=== PATIENT | male | born 1985 | race Caucasian/White ===

== ENCOUNTER 2020-02-22 11:45 | Inpatient (IN) | payer MEDICAID, SELFPAY ==
[~2020-02-22] VITALS: Ht 182.9 cm; Wt 65.3 kg
--- NOTE | 2020-02-22 11:45 | NUR ---
PT PLACED IN BED 5 BY EMS.
[2020-02-22 11:48] VITALS: BP 138/89
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
[2020-02-22] MEDS ORDERED: IBUPROFEN 400 MG TAB PO ONE (12:35)
[2020-02-22] MEDS ORDERED: ACETAMINOPHEN 325 MG TAB PO ONE (12:35)
--- NOTE | 2020-02-22 13:10 | NUR ---
REFINERY OPERATOR REFORMING UNIT AT BEDSIDE
--- NOTE | 2020-02-22 13:15 | NUR ---
PT RESTING IN BED, COOPERATIVE, CALM. SITTER AT BEDSIDE
--- NOTE | 2020-02-22 13:24 | NUR ---
FOOD TRAY PROVIDED TO PATIENT.
[2020-02-22 13:29] LABS: BASOPHILS # (AUTO) 0.1 K/uL (0.00-0.22); BASOPHILS % (AUTO) 0.8 % (0.0-2.0); EOSINOPHILS # (AUTO) 0.3 K/uL (0-0.4); EOSINOPHILS % (AUTO) 2.2 % (0.0-4.0); HEMATOCRIT 40.6 % (36-52); HEMOGLOBIN 13.4 g/dL (12.0-18.0); LYMPHOCYTES # (AUTO) 2.5 K/uL (2.0-11.5); LYMPHOCYTES % (AUTO) 20.3 % (20.5-51.1); MEAN CORPUSCULAR HEMOGLOBIN 30 pg (27-31); MEAN CORPUSCULAR HGB CONC 33 g/dL (33-37); MEAN CORPUSCULAR VOLUME 90.3 fL (80-94); MONOCYTES # (AUTO) 1.2 K/uL (0.8-1.0); MONOCYTES % (AUTO) 9.7 % (1.7-9.3); NEUTROPHILS # (AUTO) 8.2 K/uL (1.8-7.7); PLATELET COUNT (AUTO) 314 K/uL (140-450); RED CELL DISTRIBUTION WIDTH 13.2 % (11.6-13.7); WHITE BLOOD COUNT (AUTO) 12.2 K/uL (4.8-10.8)
[2020-02-22 13:44] LABS: ANION GAP 11.9 (8-16); CREATININE 0.9 mg/dL (0.6-1.3); POTASSIUM 3.9 mmol/L (3.5-5.1)
--- NOTE | 2020-02-22 14:14 | NUR ---
PER DR. MILLAN, TELE PSYCH CONSULT WAS INITIATED, CONNECT ID #[id number]
--- NOTE | 2020-02-22 14:43 | NUR ---
PT RESTING IN BED, COOPERATIVE, CALM. SITTER AT BEDSIDE
[2020-02-22 16:45] LABS: BARBITURATE, URINE NEGATIVE ng/ml (NEG <=200); BENZODIAZEPINE, URINE NEGATIVE ng/mL (NEG <=200); CANNABINOID, URINE POSITIVE ng/mL (NEG <=50); COCAINE, URINE NEGATIVE ng/mL (NEG <=300); OPIATE, URINE NEGATIVE ng/mL (NEG <=2000); PHENCYCLIDINE SCREEN,URINE NEGATIVE ng/mL (NEG <=25)
--- NOTE | 2020-02-22 18:09 | NUR ---
PT RESTING IN BED, COOPERATIVE, CALM. SITTER AT BEDSIDE
--- NOTE | 2020-02-22 18:25 | NUR ---
[place] [facility] BEDSIDE EVALUATING PATIENT
--- NOTE | 2020-02-22 19:38 | NUR ---
REPORT GIVEN TO JEAN VERGARA FOR CONTINUITY OF CARE
--- NOTE | 2020-02-22 19:40 | NUR ---
RECEIVED REPORT FROM DELLA VERGARA
--- NOTE | 2020-02-22 19:53 | NUR ---
PT SLEEPING AT THIS TIME, NO SIGNS OF DISTRESS NOTED. WILL CONTINUE TO MONITOR
--- NOTE | 2020-02-22 21:31 | NUR ---
PT RESTING QUIETLY. STATES HE IS STILL HEARING VOICES BUT HE IS NO LONGER FEELING SUICIDAL. VOICES ARE NOT SAYING ANYTHING IN PARTICULAR, BUT THEY JUST CONSTANTLY BOTHER HIM. PT HAS HX OF BIPOLAR, SCHIZOPHRENIA, AND PTSD, HE HAS BEEN WITHOUT MEDS FOR OVER 2 WEEKS.
--- NOTE | 2020-02-22 22:20 | NUR ---
PT'S MOM CALLED LOOKING FOR PT, PT WAS ABLE TO SPEAK WITH HS MOTHER.
--- NOTE | 2020-02-22 22:45 | NUR ---
S/W TODD, MOTHER, AT [phone]. PER PT MOTHER SHE WOULD LIKE PERIODIC UPDATES. PRIMARY NURSE INFORMED.
--- NOTE | 2020-02-22 23:18 | NUR ---
PER [facility], PACKETS WERE FAXED AND THE FOLLOWING FACILITIES WERE CALLED: [facility] -- NO BEDS [facility] -- NO BEDS [facility] -- NO BEDS [facility] -- NO BEDS [facility] -- NO BEDS [facility] -- NO BEDS [facility] -- PACKET WILL BE ON HOLD PENDING DISCHARGES
[2020-02-23] MEDS ORDERED: HYDROcodone/APAP 7.5/325 MG 1 TAB PO PRN (00:10)
[2020-02-23] MEDS ORDERED: ONDANSETRON 4 MG/2 ML VIAL IVP PRN (00:10)
[2020-02-23 01:51] LABS: PROTHROMBIN TIME 9.9 secs (10.8-13.4)
[2020-02-23 01:52] LABS: PHOSPHORUS 5.2 mg/dL (2.5-4.9); THYROID STIMULATING HORMONE 4.34 uIU/mL (0.34-3.74)
--- NOTE | 2020-02-23 02:00 | NUR ---
PT SLEEPING, NO DISTRESS NOTED, RESPIRATIONS REGULAR
[2020-02-23 02:15] LABS: APPEARANCE,URINE CLEAR (CLEAR); BILIRUBIN,URINE NEGATIVE (NEGATIVE); BLOOD, URINE NEGATIVE (NEGATIVE); COLOR,URINE YELLOW (YELLOW); LEUKOCYTE ESTERASE ,URINE NEGATIVE (NEGATIVE); NITRITE, URINE NEGATIVE (NEGATIVE); UGLUCOSE NEGATIVE (NEGATIVE)
--- NOTE | 2020-02-23 04:35 | NUR ---
PT SLEEPING, NO DISTRESS NOTED, RESPIRATIONS REGULAR
--- NOTE | 2020-02-23 07:13 | NUR ---
PATIENT HAS BEEN SCREENED AND CATEGORIZED LOW NUTRITION RISK. PATIENT WILL BE SEEN WITHIN 7 DAYS OF ADMISSION. 02/29/20 DONALDO EUBANKS MS, RDN
--- NOTE | 2020-02-23 07:25 | NUR ---
Pt report given to TAMMIE VERGARA. Transfer of care at this time.
--- NOTE | 2020-02-23 07:26 | NUR ---
RECEIVED REPORT FROM URSULA PENA AND [facility].
--- NOTE | 2020-02-23 07:27 | NUR ---
PT SLEEPING IN BED. EASILY AROUSEABLE TO VOICE. NO DISTRESS NOTED. BED RAILS UP AND BED IN LOWEST POSITION. WILL CONTINUE TO MONITOR.
--- NOTE | 2020-02-23 07:50 | NUR ---
breakfast tray received. pt in bed eating at this time.
--- NOTE | 2020-02-23 08:28 | NUR ---
Dr. Guaman is evaluating the patient at bedside.
[2020-02-23] MEDS ORDERED: CRUSHER, PILL MC ONE (09:42)
[2020-02-23] MEDS: DOCUSATE SODIUM 100 MG GELCAP PO SCH ×2 (09:46→21:39)
[2020-02-23] MEDS: BENZTROPINE 1 MG TAB PO SCH ×2 (09:47→21:38)
[2020-02-23] MEDS: risperiDONE 1 MG TAB PO SCH ×2 (09:49→21:40)
--- NOTE | 2020-02-23 10:08 | NUR ---
pt laying in bed sleeping. AM meds given. easily arouseable to name. side rails up and bed in lowest position. will continue to monitor.
--- NOTE | 2020-02-23 11:36 | NUR ---
PT SLEEPING IN BED. PT IS EASILY AROUSEABLE TO VOICE. PT DENIES HEARING ANY VOICES AT THIS TIME. BEDRAILS UP AND BED IN LOWEST POSITION. WILL CONTINUE TO MONITOR
[2020-02-23] MEDS: ACETAMINOPHEN 325 MG TAB PO PRN (12:11)
--- NOTE | 2020-02-23 12:45 | NUR ---
PT TALKD TO MOM ON PHONE, AND ATE LUNCH
--- NOTE | 2020-02-23 12:55 | NUR ---
TALKED TO PTS MOM SALMA ON THE PHONE AND GAVE UPDATES.
--- NOTE | 2020-02-23 14:26 | NUR ---
pt had a call from his brother
[2020-02-23 17:10] VITALS: BP 126/74
--- NOTE | 2020-02-23 17:10 | NUR ---
PATIENT ARRIVED FROM ED VIA W/C. REPORT GIVEN BY TAMMIE LAMBERT NURSE. PATIENT IS ALERT AND ORIENTED X4. INTRODUCED SELF. INTRODUCED SELF TO ROOM. PATIENT ON 5150. PLANS OF CARE DISCUSSED. PATIENT WILL HAVE 1 TO 1 SITTER FOR SUICIDE PRECAUTION. PATIENT WITH IV INTACT AND PATENT TO RFA SALINE LOCK. SKIN INTACT. VS TO FOLLOW.
--- NOTE | 2020-02-23 17:12 | NUR ---
Patient will be admitted to care of DR MANZANARES. Admited to M/S. Will go to room 109B. Belongings list completed. Report to LIBRADO.
--- NOTE | 2020-02-23 18:52 | NUR ---
PATIENT IN STABLE CONDITION. 1 TO 1 SITTER AT BEDSIDE. WILL ENDORSE TO NIGHT NURSE FOR CONTINUITY OF CARE.
--- NOTE | 2020-02-23 19:05 | NUR ---
RECD. SLEEPING IN BED, BUT EASILY AROUSABLE. A/OX4, AMBULATORY TO THE BR. RESPIRATION EVEN AND UNLABORED. IV SALINE LOCK AT THE RIGHT AC G20, PATENT AND INTACT. STATED HE IS STILL HEARING VOICES. DENIES PAIN 0/10. PLAN OF CARE DISCUSSED. SEEMS NOT INTERESTED. WENT BACK TO SLEEP. 1:1 SITTER MONITORING NEAR DOOR TO ENSURE SAFETY.
[2020-02-23] MEDS ORDERED: NICOTINE TRANSD SYS 7 MG/24 HR PATCH TD ONE (19:30)
[2020-02-23] MEDS ORDERED: NICOTINE TRANSD SYS 7 MG/24 HR PATCH TD SCH (21:00)
--- NOTE | 2020-02-23 21:40 | NUR ---
DUE PO MEDICATIONS GIVEN, COOPERATIVE.
--- NOTE | 2020-02-24 | NUR ---
SLEEPING COMFORTABLY IN BED.
[2020-02-24 01:10] VITALS: BP 103/64
--- NOTE | 2020-02-24 03:00 | NUR ---
AMBULATED TO BR TO VOID, BACK TO BED AFTER VOIDING, WENT BACK TO SLEEP.
[2020-02-24 06:40] LABS: BASOPHILS % (AUTO) 0.6 % (0.0-2.0); EOSINOPHILS # (AUTO) 0.5 K/uL (0-0.4); EOSINOPHILS % (AUTO) 7.3 % (0.0-4.0); HEMATOCRIT 40.7 % (36-52); HEMOGLOBIN 13.6 g/dL (12.0-18.0); LYMPHOCYTES # (AUTO) 2.3 K/uL (2.0-11.5); LYMPHOCYTES % (AUTO) 34.8 % (20.5-51.1); MEAN CORPUSCULAR HEMOGLOBIN 30 pg (27-31); MEAN CORPUSCULAR HGB CONC 33 g/dL (33-37); MEAN CORPUSCULAR VOLUME 90.2 fL (80-94); MONOCYTES # (AUTO) 0.7 K/uL (0.8-1.0); MONOCYTES % (AUTO) 10.9 % (1.7-9.3); NEUTROPHILS % (AUTO) 46.4 % (42.2-75.2); PLATELET COUNT (AUTO) 276 K/uL (140-450); RED BLOOD CELL COUNT(AUTO) 4.51 MIL/uL (4.20-6.10); RED CELL DISTRIBUTION WIDTH 13.3 % (11.6-13.7); WHITE BLOOD COUNT (AUTO) 6.5 K/uL (4.8-10.8)
[2020-02-24 06:52] LABS: ANION GAP 11.4 (8-16); CARBON DIOXIDE 30.7 mmol/L (21-32); CREATININE 0.7 mg/dL (0.6-1.3); POTASSIUM 4.1 mmol/L (3.5-5.1)
--- NOTE | 2020-02-24 07:00 | NUR ---
CONDITION REMAIN STABLE. SAFETY MAINTAINED DURING SHIFT. NEW 1:1 SITTER MONITORING PATIENT NEAR DOOR. WILL ENDORSE TO AM SHIFT NURSE FOR CONTINUITY OF CARE.
[2020-02-24 07:19] LABS: CHOL/HDL RATIO 6.2 (1-4.5)
[2020-02-24 07:19] LABS: MAGNESIUM 1.7 mg/dL (1.8-2.4); PHOSPHORUS 3.8 mg/dL (2.5-4.9)
--- NOTE | 2020-02-24 08:00 | NUR ---
RECEIVED REPORT FROM PM RN. PT IS RESTING IN BED, EYES CLOSED. NO SIGNS OF DISTRESS. RESPIRATIONS EVEN AND UNLABORED. SITTER IS PRESENT. 22G IN RT HAND. WILL CONTINUE TO MONITOR. CONTINUING PLAN OF CARE.
--- NOTE | 2020-02-24 08:00 | NUR ---
MEDICATIONS GIVEN. PT COOPERATIVE. WILL CONTINUE TO MONITOR.
[2020-02-24] MEDS: risperiDONE 1 MG TAB PO SCH ×2 (08:23→20:03)
[2020-02-24] MEDS: DOCUSATE SODIUM 100 MG GELCAP PO SCH ×2 (08:23→20:03)
[2020-02-24] MEDS: BENZTROPINE 1 MG TAB PO SCH ×2 (08:27→20:04)
[2020-02-24 08:30] VITALS: BP 106/66
[2020-02-24] MEDS ORDERED: MAGNESIUM OXIDE 400 MG TAB PO SCH (09:00)
--- NOTE | 2020-02-24 09:50 | NUR ---
SPOKE TO PATIENT ABOUT NEXT OF KIN. PT'S STATES HIS MOTHER, TODD MADISON . PT AMBULATED TO RESTROOM TO VOID. PT RETURNED BACK TO BED. WILL CONTINUE TO MONITOR.
[2020-02-24] MEDS: ACETAMINOPHEN 325 MG TAB PO PRN (10:17)
[2020-02-24] MEDS ORDERED: NICOTINE TRANSD SYS 21 MG/24 HR PATCH TD SCH (14:15)
--- NOTE | 2020-02-24 14:22 | NUR ---
NICOTINE PATCH GIVEN ON RT UPPER SHOULDER. PT TOLERATED PROCEDURE WELL. PT IS RESTING IN BED, EYES OPEN. NO SIGNS OF DISTRESS. RESPIRATIONS EVEN AND UNLABORED. WILL CONTINUE TO MONITOR.
[2020-02-24 17:10] VITALS: BP 122/75
--- NOTE | 2020-02-24 17:43 | NUR ---
DISCHARGE PLANNING: DISCUSSED DC PLAN WITH DR. WAGNER, HE STATED PATIENT IS MEDICALLY STABLE FOR TRANSFER TO IN PATIENT PSYCHE FACILITY. CONTACTED [facility], ABLE TO SPEAK TO [place]. SHE STATED THEY ARE AWARE OF THIS PATIENT AND IS WORKING TO FIND PLACEMENT. Addendum: 02/24/20 at 1752 by Nneka Naqvi CM CHARGE NURSE AND DR. WAGNER MADE AWARE THAT WE NEED COVID TESTING FOR THIS PATIENT. PER DR. WAGNER WILL ORDER ONE.
--- NOTE | 2020-02-24 17:44 | NUR ---
Spoke with Nneka at facility SW. Patient is still pending with [facility] per [place], no other bed placement availability at this time but will keep facility updated with any information
--- NOTE | 2020-02-24 18:35 | NUR ---
PT SWABBED FOR COVID 19. PT TOLERATED PROCEDURE WELL.
--- NOTE | 2020-02-24 18:57 | NUR ---
PT RESTING IN BED EYES OPEN, AWAKE. NO SIGNS OF DISTRESS. RESPIRATIONS ARE EVEN AND UNLABORED. PT IS COMFORTABLE IN BED.
--- NOTE | 2020-02-24 19:28 | NUR ---
GAVE REPORT TO PM ANGELO VILLARREAL . PT IS RESTING IN BED. RESPIRATIONS EVEN AND UNLABORED. NO SIGNS OF DISTRESS. SALINE LOCK ON RT HAND 20G. PT IS AWARE THAT HIS MOTHER HAS BEEN NOTIFIED. PT IS ABLE TO AMBULATE TO RESTROOM WITH SUPERVISION. REGULAR DIET. VS STABLE.
--- NOTE | 2020-02-24 19:29 | NUR ---
RECD. RESTING IN BED, AWAKE, A/OX4. RESPIRATION EVEN AND UNLABORED. IV SALINE LOCK AT THE RIGHT AC G20, PATENT AND INTACT. STATED HE IS NOT HEARING VOICES AND HE HAS NO INTENTION OF HURTING SELF, HE IS ONLY FEELING DEPRESSED. WANTS A SLEEPING PILL TONIGHT. WILL CALL MD. 1:1 SITTER MONITORING PATIENT NEAR DOOR. DENIES PAIN 0/10.
--- NOTE | 2020-02-24 20:20 | NUR ---
PATIENT MOTHER, SALMA CALLED. STATED PATIENT WAS TESTED FOR COVID AT THE [facility] IN [place] LAST January AND THE RESULT CAME OUT NEGATIVE. WILL INFORM
[2020-02-24] MEDS ORDERED: TEMAZEPAM 15 MG CAP PO SCH (21:00)
--- NOTE | 2020-02-25 00:43 | NUR ---
UNABLE TO SLEEP, MEDICATED WITH RESTORIL PE MD ORDER.
[2020-02-25 01:10] VITALS: BP 124/73
--- NOTE | 2020-02-25 02:00 | NUR ---
SLEEPING COMFORTABLY IN BED.
--- NOTE | 2020-02-25 04:10 | NUR ---
COMFORTABLE IN BED, SLEEPING. 1:1 SITTER MONITORING PATIENT.
--- NOTE | 2020-02-25 06:30 | NUR ---
KARRIE FROM CALL CENTER, INFORMED THAT THERE IS NO [facility] WHERE PATIENT CAN BE TRANSFERRED AND THAT THEY ARE ALSO AWARE THAT PATIENT IS PUI.
--- NOTE | 2020-02-25 07:10 | NUR ---
ABLE TO SLEEP WELL. SAFETY MAINTAINED DURING SHIFT. ENDORSED TO AM SHIFT NURSE FOR CONTINUITY OF CARE.
--- NOTE | 2020-02-25 07:11 | NUR ---
RECEIVED REPORT FROM SPICE MILLER NURSE TABITHA. PT RESTING IN BED, AOX4, ON ROOM AIR WITH RIGHT AC #20G/SL. DISCUSSED PLAN OF CARE AND PT VERBALIZED UNDERSTANDING. CALL LIGHT WITHIN REACH. NO S/S OF RESPIRATORY DISTRESS OR DISCOMFORT NOTED AT THIS TIME. WILL CONTINUE TO MONITOR.
[2020-02-25 08:00] VITALS: BP 109/71
[2020-02-25 08:10] LABS: BASOPHILS % (AUTO) 0.5 % (0.0-2.0); EOSINOPHILS # (AUTO) 0.5 K/uL (0-0.4); EOSINOPHILS % (AUTO) 6.4 % (0.0-4.0); HEMATOCRIT 41.4 % (36-52); HEMOGLOBIN 13.8 g/dL (12.0-18.0); LYMPHOCYTES # (AUTO) 2.6 K/uL (2.0-11.5); LYMPHOCYTES % (AUTO) 33.8 % (20.5-51.1); MEAN CORPUSCULAR HEMOGLOBIN 30 pg (27-31); MEAN CORPUSCULAR HGB CONC 33 g/dL (33-37); MEAN CORPUSCULAR VOLUME 90.5 fL (80-94); MONOCYTES # (AUTO) 0.8 K/uL (0.8-1.0); MONOCYTES % (AUTO) 10.7 % (1.7-9.3); NEUTROPHILS # (AUTO) 3.7 K/uL (1.8-7.7); NEUTROPHILS % (AUTO) 48.6 % (42.2-75.2); PLATELET COUNT (AUTO) 273 K/uL (140-450); RED BLOOD CELL COUNT(AUTO) 4.58 MIL/uL (4.20-6.10); RED CELL DISTRIBUTION WIDTH 13.2 % (11.6-13.7); WHITE BLOOD COUNT (AUTO) 7.6 K/uL (4.8-10.8)
[2020-02-25 08:18] LABS: CARBON DIOXIDE 29.1 mmol/L (21-32); CREATININE 0.8 mg/dL (0.6-1.3); POTASSIUM 4.1 mmol/L (3.5-5.1)
[2020-02-25 08:25] LABS: MAGNESIUM 1.7 mg/dL (1.8-2.4); PHOSPHORUS 3.5 mg/dL (2.5-4.9)
[2020-02-25] MEDS ORDERED: ESCITALOPRAM 20 MG TAB PO SCH (09:00)
[2020-02-25] MEDS ORDERED: NICOTINE TRANSD SYS 21 MG/24 HR PATCH TD SCH (09:00)
[2020-02-25] MEDS: risperiDONE 1 MG TAB PO SCH (09:21)
[2020-02-25] MEDS: BENZTROPINE 1 MG TAB PO SCH (09:21)
[2020-02-25] MEDS: DOCUSATE SODIUM 100 MG GELCAP PO SCH (09:21)
--- NOTE | 2020-02-25 09:21 | NUR ---
SCHEDULED MEDICATIONS GIVEN AND TOLERATED WELL. CALL LIGHT WITHIN REACH. NO S/S OF RESPIRATORY DISTRESS OR DISCOMFORT NOTED AT THIS TIME. WILL CONTINUE TO MONITOR.
--- NOTE | 2020-02-25 11:00 | NUR ---
PT SLEEPING IN BED. CALL LIGHT WITHIN REACH. NO S/S OF RESPIRATORY DISTRESS OF DISCOMFORT NOTED AT THIS TIME. WILL CONTINUE TO MONITOR.
--- NOTE | 2020-02-25 11:50 | NUR ---
[facility] is aware patient is PUI and Covid results are pending. Call Center will continue to monitor and send referral out to facilities. At this time, no bed availability through out the county.
--- NOTE | 2020-02-25 13:00 | NUR ---
PT CONTINUES TO SLEEP IN BED. CALL LIGHT WITHIN REACH. NO S/S OF RESPIRATORY DISTRESS OF DISCOMFORT NOTED AT THIS TIME. WILL CONTINUE TO MONITOR.
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
[2020-02-25] MEDS ORDERED: MAGNESIUM OXIDE 400 MG TAB PO SCH (14:30)
--- NOTE | 2020-02-25 15:00 | NUR ---
SPOKE WITH DR. SLOAN AND INFORMED HIM THAT PT MOTHER TODD MADISON WOULD LIKE TO SPEAK WITH HIM. GAVE MD HER PHONE NUMBER. DR. WAGNER IN WITH PATIENT FOR DISCHARGE INSTRUCTIONS.
[2020-02-25] MEDS ORDERED: ESCI10TA PO (15:05)
[2020-02-25] MEDS ORDERED: BENZ-203 PO (15:05)
[2020-02-25] MEDS ORDERED: RISP0.5T3 PO (15:05)
[2020-02-25 15:37] VITALS: BP 109/71
--- NOTE | 2020-02-25 16:15 | NUR ---
PT SIGNED ALL DISCHARGE PAPERWORK. ALL PERSONAL BELONGINGS ARE IN HIS POSSESSION INCLUDING RX. IV SITE REMOVED-CANNULA INTACT AND ID BANDS REMOVED. PT AWAITING OUTSIDE FRONT LOBBY WHERE [employer] WILL BE ARRIVING. FRONT LOBBY LENS GRINDING MACHINE OPERATOR WILL GIVE TAXI CAB TICKET PER INSTRUCTIONS BY MANAGER WINTER FRANDY. PT IN STABLE CONDITION.
== END 2020-02-25 16:15 | disposition designated cancer center or children's hospital (05) | DRG 756 ==
LOC: MED 11:45 → MMU 02-23 00:09 → EEVIPCON 02-23 00:09 → MTU 02-23 16:54
PROVIDERS: ADMIT General Practice; ATTEND General Practice
DX: R45.851 Suicidal ideations (principal); M32.9 Systemic lupus erythematosus, unspecified; Z91.5 Personal history of self-harm; F17.200 Nicotine dependence, unspecified, uncomplicated; F15.10 Other stimulant abuse, uncomplicated
CPT/HCPCS: 36415; 71045; 80048; 80305; 81003; 83036; 83735; 83880; 84100; 84443; 85025; 85610; 85730; 87081; 99285; G0482; U0003-CS